=== PATIENT | male | born 1965 | race African-American/Black ===

== ENCOUNTER 2018-09-13 18:53 | Inpatient (IN) | payer MEDICAID ==
[~2018-09-13] VITALS: Ht 170.2 cm; Wt 79.6 kg
[2018-09-13] MEDS ORDERED: SODIUM CHLORIDE 0.9% 1,000 ML IV ONE (19:46)
[2018-09-13 20:36] LABS: CHLORIDE 107 mEq/L (98-107)
[2018-09-13 20:40] LABS: ETHANOL BLOOD < 10 mg/dL; INR 1.1; PARTIAL THROMBOPLASTIN TIME 28.2 sec (23.4-31.0); PROTHROMBIN TIME 10.7 sec (9.1-11.1)
[2018-09-13 20:43] LABS: BASOPHILS % 0.2 % (0.0-2.0); EOSINOPHILS % 0.7 % (0.0-5.0); HEMATOCRIT. 41.3 % (42.0-52.0); HEMOGLOBIN. 13.8 g/dL (14.0-18.0); LYMPHOCYTES % 11.2 % (20.0-50.0); MEAN CORPUSCULAR HEMOGLOBIN 31.5 pg (28.0-32.0); MEAN CORPUSCULAR VOLUME 94.3 fL (80.0-94.0); MEAN PLATELET VOLUME 7.2 fl (7.4-10.4); MONOCYTES % 9.3 % (2.0-8.0); NEUTROPHILS % 78.6 % (40.0-76.0); PLATELET 408 x1000/uL (130-400); RED BLOOD CELL COUNT 4.38 mill/uL (4.7-6.1); RED CELL DISTRIBUTION WIDTH 14.2 % (11.6-14.6)
[2018-09-13] MEDS ORDERED: ONDANSETRON HCL 4MG/2ML INJ IV ONE (21:30)
[2018-09-13] MEDS ORDERED: FAMOTIDINE 20MG/2ML VIAL IV ONE (21:30)
[2018-09-13] MEDS ORDERED: HYDROCODONE/ACETAMINOPHEN 5/325MG TABLET PO ONE (23:00)
[2018-09-14 08:02] LABS: METHADONE URINE SCREEN NEGATIVE (NEGATIVE); OPIATES URINE SCREEN NEGATIVE (NEGATIVE)
[2018-09-14 08:03] LABS: *AMPHETAMINES SCREEN URINE NEGATIVE (NEGATIVE); *BARBITURATES SCREEN URINE NEGATIVE (NEGATIVE); *BENZODIAZEPINES SCREEN URINE NEGATIVE (NEGATIVE); CANNABINOID URINE SCREEN PRESUMTIVE POSITIVE (NEGATIVE); PHENCYCLIDINE URINE SCREEN NEGATIVE (NEGATIVE)
[2018-09-14 08:04] LABS: *COCAINE SCREEN URINE NEGATIVE (NEGATIVE)
[2018-09-14] MEDS ORDERED: MORPHINE SULFATE 4 MG/ML CPJ (NOT FOR IM USE) IV PRN (08:45)
[2018-09-14] MEDS ORDERED: DEXTROSE 50% WATER 50ML SYRINGE IV PRN (08:45)
[2018-09-14] MEDS ORDERED: ONDANSETRON HCL 4MG/2ML INJ IV PRN (08:45)
[2018-09-14] MEDS ORDERED: ACETAMINOPHEN 325MG TABLET PO PRN (08:45)
[2018-09-14] MEDS: BLOOD SUGAR DIAGNOSTIC STRIP TEST SCH ×4 (09:00→21:57)
[2018-09-14 09:15] VITALS: BP 139/70
[2018-09-14 09:20] VITALS: BP 139/70
[2018-09-14] MEDS ORDERED: NPH,100V SQ (09:57)
[2018-09-14] MEDS ORDERED: INSU100V3 SUBCUT (09:57)
[2018-09-14] MEDS ORDERED: CLOP75TA16 MT (09:57)
[2018-09-14] MEDS ORDERED: ASPI-1159 MT (09:57)
[2018-09-14] MEDS: INSULIN GLARGINE UD 100 UNITS/ML SYR SUBCUT SCH ×2 (10:14→21:58)
[2018-09-14] MEDS: HYDROCODONE/ACETAMINOPHEN 10/325MG TABLET PO PRN ×2 (10:39→19:54)
[2018-09-14 11:02] VITALS: BP 132/66
[2018-09-14] MEDS: SODIUM CHLORIDE 0.9% 1,000 ML IV SCH ×2 (12:09→22:06)
[2018-09-14] MEDS: FAMOTIDINE 20MG TABLET PO SCH ×2 (12:12→22:06)
[2018-09-14] MEDS ORDERED: INSULIN REGULAR (HUMULIN R) 300UNITS/3ML SUBCUT SCH (12:20)
[2018-09-14] MEDS ORDERED: INSULIN LISPRO 100 UNITS/ML SUBCUT SCH (12:50)
[2018-09-14] MEDS ORDERED: INS NPH/REG HM 70-30 100 UNITS/ML 10ML VIAL (HUMULIN 70-30) SUBCUT SCH ×2 (12:50→17:00)
[2018-09-14 15:29] VITALS: BP 146/76
[2018-09-14] MEDS ORDERED: CLONIDINE 0.1MG TABLET PO PRN (17:15)
[2018-09-14] MEDS: INSULIN REGULAR (HUMULIN R) 300UNITS/3ML SUBCUT SCH (17:20)
[2018-09-14] MEDS ORDERED: ENOXAPARIN 40MG/0.4ML SYR SUBCUT SCH (18:00)
[2018-09-14 20:00] VITALS: BP 127/52
[2018-09-14] MEDS: INS NPH/REG HM 70-30 100 UNITS/ML 10ML VIAL (HUMULIN 70-30) SUBCUT SCH (22:36)
[2018-09-15] VITALS: BP 131/59
[2018-09-15 04:00] VITALS: BP 129/48
[2018-09-15] MEDS: BLOOD SUGAR DIAGNOSTIC STRIP TEST SCH (07:20)
[2018-09-15] MEDS: INSULIN REGULAR (HUMULIN R) 300UNITS/3ML SUBCUT SCH (07:20)
[2018-09-15 08:00] VITALS: BP 164/51
[2018-09-15] MEDS: FAMOTIDINE 20MG TABLET PO SCH (08:28)
[2018-09-15] MEDS: INS NPH/REG HM 70-30 100 UNITS/ML 10ML VIAL (HUMULIN 70-30) SUBCUT SCH (08:32)
== END 2018-09-15 09:15 | disposition left against medical advice (07) | DRG 48 ==
LOC: ER 18:53 → 6WST 21:22 → EDBEDREQTM 21:27 → EDBEDREQ 21:27 → ENRESERV 09-14 07:13
PROVIDERS: ADMIT Internal Medicine; ATTEND Internal Medicine
DX: G90.8 Other disorders of autonomic nervous system (principal); N17.0 Acute kidney failure with tubular necrosis; F12.90 Cannabis use, unspecified, uncomplicated; G40.909 Epilepsy, unspecified, not intractable, without status epilepticus; E11.51 Type 2 diabetes mellitus with diabetic peripheral angiopathy without gangrene; A08.4 Viral intestinal infection, unspecified; I10 Essential (primary) hypertension; Z53.21 Procedure and treatment not carried out due to patient leaving prior to being seen by health care provider; N40.0 Benign prostatic hyperplasia without lower urinary tract symptoms; Z60.2 Problems related to living alone; Z79.82 Long term (current) use of aspirin; Z79.4 Long term (current) use of insulin; Z89.9 Acquired absence of limb, unspecified
CPT/HCPCS: 36415; 71045; 74176; 80305; 80320; 82962; 83735; 83880; 84484; 93005; 93306; 96361; 96374; 96375; 99285; C1893; J1650; J1815; J2405; J3490; J7030; G0480